=== PATIENT | female | born 1945 | race Caucasian/White ===

== ENCOUNTER 2017-05-27 08:08 | Emergency (ER) | payer MEDICARE, BC ==
[~2017-05-27] VITALS: Ht 157.5 cm; Wt 52.2 kg
[2017-05-27 08:53] VITALS: BP 187/98
[2017-05-27 09:25] LABS: APPEARANCE,URINE CLEAR; KETONES,URINE NEGATIVE (NEGATIVE); LEUKOCYTE ESTERASE ,URINE 2+ (NEGATIVE); NITRITE,URINE POSITIVE (NEGATIVE); PH,URINE 7 (4.5-8.0); PROTEIN,URINE NEGATIVE (NEGATIVE); UROBILINOGEN,URINE NORMAL MG/DL (0.0-1.0)
[2017-05-27 09:34] LABS: BACTERIA,URINE MODERATE /HPF; SQUAMOUS EPITHELIAL CELL,UR FEW /LPF (NONE/OCC)
--- NOTE | 2017-05-27 09:48 | Emergency Room Report ---
History of Present Illness General Chief Complaint: Female Urogenital Problems Source: Patient Present Illness HPI Patient presents with dysuria 1 week after course of Keflex. She has frequency, urgency and dysuria. Pain is also vaginal and anterior lower abdomen. Constant pressure and burning 4/10. No fevers or back pain. She did not take her atenolol and is worried about BP. Anxious. No NVD, chest pain, dyspnea, change in bowels. She takes synthroid and is concerned about mixing medications. She has a h/o atrial fibrillation and has had poor rate control in past. [place] with rapid a fib after syncopal episode. No dizziness or palpitations. Allergies: Coded Allergies: ASPIRIN (Verified Allergy, Unknown, 05/27/17) Dairy (Verified Allergy, Unknown, 05/27/17) ERYTHROMYCIN BASE (Verified Allergy, Unknown, 05/27/17) MELON (Verified Allergy, Unknown, 05/27/17) PAPRIKA (Verified Allergy, Unknown, 05/27/17) SULFAMETHOXAZOLE (Verified Allergy, Unknown, Rash, 05/27/17) TRIMETHOPRIM (Verified Allergy, Unknown, Rash, 05/27/17) Uncoded Allergies: ANTI-INFLAMMATORY (Allergy, Unknown, 05/27/17) ARTICHOKES (Allergy, Unknown, 05/27/17) CITRUS (Allergy, Unknown, 05/27/17) NUTS (Allergy, Unknown, 05/27/17) PEPPERS (Allergy, Unknown, 05/27/17) ZUCHINNI (Allergy, Unknown, 05/27/17) Patient History Past Medical History: see triage record, AFib Social History: Denies: smoking, alcohol use, drug use Social History Narrative by self Last Menstrual Period: na Reviewed Nursing Documentation: PMH: Agreed, PSxH: Agreed Nursing Documentation-PMH Past Medical History: No History, Except For Hx Hypertension: Yes Review of Systems All Other Systems: negative except mentioned in HPI Physical Exam Vital Signs Date Time Temp Pulse Resp B/P (MAP) Pulse Ox O2 Delivery O2 Flow Rate FiO2 05/27/17 08:34 97.5 66 18 187/98 98 Room Air Sp02 EP Interpretation: reviewed, normal General Appearance: well appearing, no apparent distress, GCS 15 Head: normocephalic Eyes: bilateral eye normal inspection, bilateral eye PERRL ENT: moist mucus membranes Neck: supple Respiratory: lungs clear, normal breath sounds Cardiovascular #1: regular rate, rhythm Cardiovascular #2: 2+ radial (R) Gastrointestinal: normal inspection, normal bowel sounds, non tender, no mass, non-distended Genitourinary: no CVA tenderness, deferred Musculoskeletal: back normal, gait/station normal, normal range of motion Neurologic: alert, oriented x3, grossly normal Psychiatric: anxious Skin: normal inspection, warm/dry Medical Decision Making Diagnostic Impression: Primary Impression: UTI (urinary tract infection) Qualified Codes: N30.00 - Acute cystitis without hematuria Additional Impression: HTN (hypertension) Qualified Codes: I10 - Essential (primary) hypertension ER Course Patient with dysuria. DDx: resistant bacteria, recurrent UTI, interstitial cystitis, vaginitis. Patient states recent exam by OB and doubts vaginitis. UA indicated. Anxious. Some HTN. UA with UTI. I had patient take atenolol. Her heart rate is normal and it is presumed she is in NSR. Macrobid and pyridium begun. Improved, though still worried of BP (but also upset at ED commotion). Patient stable for outpatient observation and treatment. Laboratory Tests Test 05/27/17 08:40 Urine Color Pale yellow Urine Appearance Clear Urine pH 7 (4.5-8.0) Urine Specific Margaret 1.010 (1.005-1.035) Urine Protein Negative (NEGATIVE) Urine Glucose (UA) Negative (NEGATIVE) Urine Ketones Negative (NEGATIVE) Urine Occult Blood 4+ (NEGATIVE) H Urine Nitrite Positive (NEGATIVE) H Urine Bilirubin Negative (NEGATIVE) Urine Urobilinogen Normal MG/DL (0.0-1.0) Urine Leukocyte Esterase 2+ (NEGATIVE) H Urine RBC 5-10 /HPF (0 - 2) H Urine WBC 5-10 /HPF (0 - 2) H Urine Squamous Epithelial Cells Few /LPF (NONE/OCC) Urine Bacteria Moderate /HPF (NONE) H Last Vital Signs Date Time Temp Pulse Resp B/P (MAP) Pulse Ox O2 Delivery O2 Flow Rate FiO2 05/27/17 10:32 97.5 67 18 178/95 99 Room Air Status: improved Disposition: HOME, SELF-CARE Condition: Improved Scripts Phenazopyridine Hcl* (PYRIDIUM*) 100 Mg Tablet 100 MG ORAL THREE TIMES A DAY, #9 TAB Prov: Yakov Rachel M.D. 05/27/17 Nitrofurantoin Monohyd/M-Cryst* (MACROBID 100 MG*) 100 Mg Capsule 100 MG ORAL EVERY 12 HOURS, #14 CAP Prov: Yakov Rachel M.D. 05/27/17 Referrals: UNIQUE ACKERMAN (PCP) Yakov Rachel M.D. May 27, 2017 09:48
[2017-05-27] MEDS ORDERED: PHENAZOPYRIDIN100 MG ORAL (09:50)
[2017-05-27] MEDS ORDERED: NITROFURANTOIN100 M2 ORAL (09:50)
[2017-05-27 10:16] VITALS: BP 178/95
[2017-05-27 10:32] VITALS: BP 178/95
== END 2017-05-27 10:40 | disposition home or self-care (01) ==
LOC: EMR 09:10
DX: N39.0 Urinary tract infection, site not specified (principal); I10 Essential (primary) hypertension; Z88.6 Allergy status to analgesic agent; Z88.2 Allergy status to sulfonamides; Z88.8 Allergy status to other drugs, medicaments and biological substances; Z91.018 Allergy to other foods
CPT/HCPCS: 81003; 87086; 87181; 99284